=== PATIENT | male | born 1975 | race Caucasian/White ===

== ENCOUNTER 2017-03-01 12:21 | Emergency (ER) | payer MEDICAID ==
[~2017-03-01] VITALS: Ht 177.8 cm; Wt 82.0 kg
[2017-03-01 14:19] LABS: BASOPHILS % 0.2 % (0.0-2.0); EOSINOPHILS % 0.1 % (0.0-5.0); HEMATOCRIT. 40.4 % (42.0-52.0); HEMOGLOBIN. 13.6 g/dL (14.0-18.0); LYMPHOCYTES % 13.2 % (20.0-50.0); MEAN CORPUSCULAR HEMOGLOBIN 27.7 pg (28.0-32.0); MEAN CORPUSCULAR VOLUME 82.2 fL (80.0-94.0); MEAN PLATELET VOLUME 8.1 fl (7.4-10.4); MONOCYTES % 5.6 % (2.0-8.0); NEUTROPHILS % 80.9 % (40.0-76.0); PLATELET 245 x1000/uL (130-400); RED BLOOD CELL COUNT 4.91 mill/uL (4.7-6.1); RED CELL DISTRIBUTION WIDTH 13.9 % (11.6-14.6)
[2017-03-01 14:30] VITALS: BP 132/66
[2017-03-01 14:30] LABS: PARTIAL THROMBOPLASTIN TIME 25.1 sec (23.4-31.0); PROTHROMBIN TIME 10.7 sec (9.4-11.6)
[2017-03-01 14:34] LABS: CARBON DIOXIDE 29 mEq/L (21-32); CHLORIDE 103 mEq/L (98-107)
[2017-03-01 14:36] LABS: TROPONIN I < 0.02 ng/mL (0.00-0.04)
[2017-03-01 15:24] LABS: CLARITY URINE CLEAR (CLEAR); COLOR URINE YELLOW (YELLOW); GLUCOSE URINE NEGATIVE (NEGATIVE); KETONES URINE NEGATIVE (NEGATIVE); LEUKOCYTE ESTERASE URINE NEGATIVE (NEGATIVE); NITRITE URINE NEGATIVE (NEGATIVE); OCCULT BLOOD URINE NEGATIVE (NEGATIVE); PH URINE 5.5 (4.5-8.0); PROTEIN URINE NEGATIVE (NEGATIVE); SPECIFIC GRAVITY URINE 1.013 (1.005-1.030); UROBILINOGEN URINE 0.2 E.U./dL (0.2-1.0)
== END 2017-03-01 16:35 | disposition home or self-care (01) ==
LOC: ER 12:21
DX: E11.649 Type 2 diabetes mellitus with hypoglycemia without coma (principal); R03.0 Elevated blood-pressure reading, without diagnosis of hypertension; Z79.4 Long term (current) use of insulin; S49.82XA Other specified injuries of left shoulder and upper arm, initial encounter; F91.8 Other conduct disorders; Y93.89 Activity, other specified; Y35.813A Legal intervention involving manhandling, suspect injured, initial encounter; Y92.89 Other specified places as the place of occurrence of the external cause; Z87.891 Personal history of nicotine dependence; Z76.0 Encounter for issue of repeat prescription; K08.9 Disorder of teeth and supporting structures, unspecified
CPT/HCPCS: 36415; 71010; 73030; 80053; 81003; 82962; 83690; 83880; 84484; 85025; 85610; 85730; 93005; 99285; Z7610

== ENCOUNTER 2018-05-21 12:50 | Emergency (ER) | payer MEDICAID ==
[~2018-05-21] VITALS: Ht 157.5 cm; Wt 84.0 kg
[2018-05-21] MEDS ORDERED: BACITRACIN ZINC OINT UDPKT TOP ONE (15:45)
[2018-05-21 16:25] VITALS: BP 121/66
== END 2018-05-21 16:26 | disposition home or self-care (01) ==
LOC: ER 12:50 → EDBD 12:50 → ER 16:26
DX: T22.211D Burn of second degree of right forearm, subsequent encounter (principal); E10.8 Type 1 diabetes mellitus with unspecified complications; X08.8XXD Exposure to other specified smoke, fire and flames, subsequent encounter
CPT/HCPCS: 82962; 99283

== ENCOUNTER 2018-05-28 12:49 | Emergency (ER) | payer MEDICAID ==
[~2018-05-28] VITALS: Ht 177.8 cm; Wt 88.0 kg
[2018-05-28 16:07] VITALS: BP 131/92
== END 2018-05-28 16:14 | disposition home or self-care (01) ==
LOC: ER 15:33
DX: E10.8 Type 1 diabetes mellitus with unspecified complications (principal); F12.10 Cannabis abuse, uncomplicated; F17.200 Nicotine dependence, unspecified, uncomplicated
CPT/HCPCS: 82962; 99283

== ENCOUNTER 2018-11-12 20:52 | Emergency (ER) | payer MEDICAID, OTHER ==
[~2018-11-12] VITALS: Ht 177.8 cm; Wt 73.0 kg
[2018-11-12 21:17] VITALS: BP 112/74
== END 2018-11-12 23:33 | disposition left against medical advice (07) ==
LOC: ER 20:52
DX: R41.0 Disorientation, unspecified (principal); E11.9 Type 2 diabetes mellitus without complications; F12.10 Cannabis abuse, uncomplicated
CPT/HCPCS: 82962; 99283

== ENCOUNTER 2023-04-19 13:52 | Emergency (ER) | payer OTHER ==
[~2023-04-19] VITALS: Ht 182.9 cm; Wt 81.0 kg
[2023-04-19 14:07] VITALS: O2SAT 98
[2023-04-19] MEDS ORDERED: KETOROLAC 60MG/2ML VIAL IM ONE (14:45)
[2023-04-19 16:52] VITALS: BP 132/64; PULSE 80; RESP 20; TEMP 98.3
== END 2023-04-19 16:54 | disposition home or self-care (01) ==
LOC: ER 13:59
DX: M25.512 Pain in left shoulder (principal); M54.9 Dorsalgia, unspecified; E11.9 Type 2 diabetes mellitus without complications; E78.5 Hyperlipidemia, unspecified; W19.XXXA Unspecified fall, initial encounter; Y93.89 Activity, other specified; Y92.89 Other specified places as the place of occurrence of the external cause; Y99.8 Other external cause status
CPT/HCPCS: 71046; 73030; 96372; 99284; J1885; Z7610; A4565